=== PATIENT | male | born 2000 | race Two or more races ===

== ENCOUNTER 2021-03-28 00:39 | Emergency (ER) | payer SELFPAY ==
[~2021-03-28] VITALS: Ht 182.9 cm; Wt 125.0 kg
[2021-03-28 01:25] VITALS: BP 132/78
[2021-03-28] MEDS ORDERED: PB/HYOSCY/ATR/SCOP/LIDO/MAALOX 55 ML BOTTLE PO ONE (01:30)
== END 2021-03-28 01:43 | disposition home or self-care (01) ==
LOC: EMS 00:41
DX: K21.9 Gastro-esophageal reflux disease without esophagitis (principal); J45.909 Unspecified asthma, uncomplicated
CPT/HCPCS: 99283